=== PATIENT | male | born 1960 | race Caucasian/White ===

== ENCOUNTER → 2018-03-19 | Day surgery (SDC) | payer OTHER ==
[~2018-03-19] VITALS: Ht 170.2 cm; Wt 92.5 kg
[~2018-03-19] MED LIST: BUPIVAC MPF-EPI 0.5%-1:200000 30 ML VIAL. ONE; DEXAMETHASONE SOD PHOS 20 MG/5 ML VIAL. ONE; HYDROmorphone 2 MG/ML VIAL IV PRN; IV RINGERS,LACTATED 1000ML 1,000 ML IV SCH; KETOROLAC 30 MG/ML INJ FOR OR. INJ ONE; LIDOCAINE 1% PF 2 ML VIAL. ID PRN; LIDOCAINE 1% PF 5 ML VIAL. ONE; MIDAZOLAM HCL/PF 2 MG/2 ML VIAL. ONE; MORPHINE SULFATE 2 MG/ML VIAL. IV PRN; NIFE90TA PO; ONDANSETRON PF 4 MG/2 ML VIAL. IV PRN; ONDANSETRON PF 4 MG/2 ML VIAL. ONE; PROCHLORPERAZINE 10 MG/2 ML VIAL. IV PRN; PROPOFOL 20 ML IV ONE; SEVOFLURANE 61 TO 120 MINUTES. IH ONE; fentaNYL PF VIAL 100 MCG/2 ML VIAL IV PRN; fentaNYL PF VIAL 100 MCG/2 ML VIAL ONE
--- NOTE | 2018-03-19 08:35 | PDOC4 ---
Operative Note Operative Note Date: 03/19/2018 Preoperative diagnosis: Umbilical hernia Postoperative diagnosis: Same Procedure: Umbilical hernia repair Surgeon: Dago Specimen: None Dictation: Patient is a 58-year-old male who's complained of painful bulge at his umbilicus for a number of years seizure of umbilical hernia repair was explained to the patient detail was benefits were also discussed including bleeding infection alternatives to this procedure also discussed with patient seemed understanding gave both verbal and written consent to have the procedure performed. Patient was taken to the operating room placed in supine position general anesthesia was initiated once patient was asleep and intubated his abdomen was prepped and draped usual sterile fashion using ChloraPrep and area around the umbilicus was injected with quarter percent Marcaine with epinephrine and incision was made with 15 blade scalpel just below the umbilicus is carried down through the subcutaneous tissue using electric cautery to provide hemostasis the hernia sac was dissected free of its adherence to the subcutaneous tissue and the contents were reduced into the abdomen the fascial defect was then closed with 0 Vicryl and a far near near far fashion. The deep subcutaneous layers closed running 3-0 Vicryl and the skin was approximate 4 septic or Monocryl mass all Steri-Strips and island dressing were applied. Patient was waken expanded in the operating room taken recovery in stable condition all sponge instrument needle counts listed as correct estimated blood loss 5 mL. MACRINA BANSAL MD Mar 19, 2018 08:35
--- NOTE | 2018-03-19 08:36 | DISCH ---
DISCHARGE INSTRUCTIONS Condition on Discharge Condition on Discharge: Stable Activity After Discharge Activity Instructions for Disc: Avoid exertion Other activity instructions: no lifting more than 20 pounds for 2 weeks Diet after Discharge Diet after Discharge: Regular Wound Incision Care Other wound/incision instructi: May shower in 24 hours Contacting the DROlga after DC Call your doctor for: If your condition worsens Follow-Up Follow up with: Dr. Bansal in 2 weeks MACRINA BANSAL MD Mar 19, 2018 08:36
[2018-03-19 09:37] VITALS: BP 150/74
== END | disposition home or self-care (01) ==
LOC: SURG 06:43
PROVIDERS: ATTEND Surgery
DX: K42.9 Umbilical hernia without obstruction or gangrene (principal); I10 Essential (primary) hypertension; E78.00 Pure hypercholesterolemia, unspecified; M19.90 Unspecified osteoarthritis, unspecified site; Z98.890 Other specified postprocedural states; Z87.891 Personal history of nicotine dependence; Z72.89 Other problems related to lifestyle; F12.10 Cannabis abuse, uncomplicated; F14.10 Cocaine abuse, uncomplicated; Z88.8 Allergy status to other drugs, medicaments and biological substances; Z79.82 Long term (current) use of aspirin; Z79.899 Other long term (current) drug therapy
CPT/HCPCS: 49585; J0690; J1100; J1885; J2250; J2405; J2704; J3010; J3490; J7120

== ENCOUNTER → 2020-02-23 | Outpatient (CLI) | payer OTHER ==
[2018-03-19 09:37] VITALS: BP 150/74
[~2020-02-23] MED LIST changes: -BUPIVAC MPF-EPI 0.5%-1:200000 30 ML VIAL. ONE; -DEXAMETHASONE SOD PHOS 20 MG/5 ML VIAL. ONE; -HYDROmorphone 2 MG/ML VIAL IV PRN; -IV RINGERS,LACTATED 1000ML 1,000 ML IV SCH; -KETOROLAC 30 MG/ML INJ FOR OR. INJ ONE; -LIDOCAINE 1% PF 2 ML VIAL. ID PRN; -LIDOCAINE 1% PF 5 ML VIAL. ONE; -MIDAZOLAM HCL/PF 2 MG/2 ML VIAL. ONE; -MORPHINE SULFATE 2 MG/ML VIAL. IV PRN; -ONDANSETRON PF 4 MG/2 ML VIAL. IV PRN; -ONDANSETRON PF 4 MG/2 ML VIAL. ONE; -PROCHLORPERAZINE 10 MG/2 ML VIAL. IV PRN; -PROPOFOL 20 ML IV ONE; -SEVOFLURANE 61 TO 120 MINUTES. IH ONE; -fentaNYL PF VIAL 100 MCG/2 ML VIAL IV PRN; -fentaNYL PF VIAL 100 MCG/2 ML VIAL ONE
--- NOTE | 2020-02-23 09:41 | KCIC ---
EXAMINATION: CT BONE LENGTH SCANOGRAM CLINICAL HISTORY: Unequal leg length with history of left leg fracture and surgery TECHNIQUE: CT scanogram of the bilateral lower extremities performed with scanning from the level of the iliac crests through the feet. COMPARISON: None FINDINGS: Nonneutral positioning and variable degree of rotation between the lower extremities limits evaluation. Leg length measures 83.6 cm on the right and 78.9 cm on the left. Biomechanical axis measurements not calculated secondary to patient positioning. Old fracture deformity in the left proximal to mid tibial diaphysis. IMPRESSION: Leg length discrepancy with shortened left lower extremity as described. Electronically signed by: Niall Rivera DO (02/23/2020 9:39 AM) [id number]
== END ==
LOC: KCIC CT 08:27
PROVIDERS: ATTEND Orthopaedic Surgery
DX: M21.751 Unequal limb length (acquired), right femur (principal); M21.752 Unequal limb length (acquired), left femur; M21.862 Other specified acquired deformities of left lower leg; Z98.890 Other specified postprocedural states
CPT/HCPCS: 77073